=== PATIENT | male | born 1960 | race Caucasian/White ===

== ENCOUNTER 2018-05-28 10:22 | Outpatient (CLI) | payer MEDICARE ==
[~2018-05-28] VITALS: Ht 180.3 cm; Wt 122.7 kg
--- NOTE | ~2018-05-28 | HP ---
PATIENT: BRIANNA BOWLING MEDICAL RECORD: [id number] ACCOUNT: [id number] LOCATION:ERIN : 62 ADMISSION DATE: 05/28/18 HISTORY AND PHYSICAL EXAMINATION DIAGNOSES: 1. Angina. 2. Coronary artery disease. 3. Previous percutaneous transluminal coronary angioplasty stent. 4. Hypertension. 5. Hyperlipidemia. 6. Diabetes. HISTORY OF PRESENT ILLNESS: Mr. Bowling is visiting from [place]. He does have a past history of coronary artery disease. Last PTCA stent was a few years ago. For 2 days, he has been having a severe chest pain, chest pressure with radiation to his both arms and to his jaw, just like that of his previous angina but to a worse degree. His EKG is with nonspecific ST-T abnormalities and a previous inferior myocardial infarction. PHYSICAL EXAMINATION: GENERAL APPEARANCE: Well-nourished, well-developed, appears stated age. Level of distress, comfortable. PSYCHIATRIC: Mental status, alert, normal affect. Orientation, oriented to time, place and person. EYES: Lids and conjunctiva, noninjected. No discharge, no pallor. ENT: Lips, teeth, gums, normal dentition. Oropharynx, no cyanosis, no pallor. NECK: Carotid arteries, bilateral normal upstroke, no bruits, no thrills. JUGULAR VEINS: No jugular venous pressure or distention. CERVICAL LYMPH NODES: Nontender, nonenlarged. THYROID: Not enlarged. Nontender. No nodules. LUNGS: Respiratory effort, unlabored. CHEST: Normal curvature. No thoracic deformity. No chest wall tenderness. Percussion, resonant. Auscultation, clear. No wheezes, no rales, no rhonchi. CARDIOVASCULAR: Precordial exam, nondisplaced. No heaves or pericardial thrills. Rate and rhythm, regular. Heart sounds, normal S1, normal S2. No S3, no gallop, no rub. Systolic murmur, not heard. Diastolic murmur, not heard. EXTREMITIES: No cyanosis, no edema. Peripheral pulses, full and equal in all extremities, except as noted. No bruits appreciated. ABDOMEN: Soft, nondistended. Normal aorta. No bruit. Nontender. No masses. Liver, nontender, no hepatomegaly. Spleen, nontender, no splenomegaly. MUSCULOSKELETAL: No joint tenderness. No joint swelling. No erythema. NEUROLOGICAL: Normal gait, normal strength, normal tone. SKIN: Warm and dry. REVIEW OF SYSTEMS: The patient reports easy bruising but reports no swollen glands. The patient reports no fever, no night sweats, no significant weight gain, no significant weight loss. No significant exercise tolerance. The patient reports no dry eyes, no irritation, no vision change. Patient reports no difficulty hearing and no ear pain. Patient reports no frequent nose bleeds or nose and sinus problems. Patient reports on arm pain on exertion. No shortness of breath while lying down. No history of heart murmur. Patient reports no cough, no wheezing or coughing up blood. Patient reports no abdominal pain, no vomiting. Normal appetite. No diarrhea and not vomiting blood. No nausea and no constipation. Patient reports no incontinence. No HISTORY AND PHYSICAL [id number] BRIANNA BOWLING difficulty urinating. No hematuria. No increased frequency. Patient reports no muscle aches. No weakness, no arthralgias, no back pain. No swelling of the extremities. Patient reports no abnormal mole, no jaundice, no rashes. Reports no loss of consciousness. No weakness and no numbness. No seizures, dizziness, or headaches. The patient reports no depression, no sleep disturbance, feeling safe in a relationship and no alcohol abuse. Patient reports on fatigue. Reports no runny nose or sinus pressure. No itching, no hives, and no frequent sneezing. OVERALL IMPRESSION: Angina, unstable escalating fashion. We will proceed with coronary angiography. Further care depends upon the findings of the angiography. TRANSINT:[id number] Voice Confirmation ID: [id number] DOCUMENT ID: [id number] SOLA WHITE MD at 1806 CC: [id number] DICTATION DATE: 05/28/18 1213 BI TESTER: 05/28/18 1248 DEP CLI 05/28/18 [facility] [address] [id number]
--- NOTE | ~2018-05-28 | OP ---
PATIENT NAME: BRIANNA BOWLING MEDICAL RECORD: [id number] :62 LOCATION:D.CAT ADMISSION DATE: SURGEON: SOLA WHITE MD DATE OF OPERATION: 05/28/2018 PROCEDURES: 1. PTCA stent left circumflex. 2. Left heart catheterization. 3. Selective coronary angiography. 4. Left ventriculogram. INDICATION: Angina and coronary artery disease. PROCEDURE IN DETAIL: After informed consent was obtained and after a detailed description of the risks, benefits as well as alternative therapies, the patient elected to proceed with angiogram and angioplasty. The right radial area was prepped and draped in normal sterile fashion. Right radial artery was cannulated via modified Seldinger technique with placement of 6-Spanish sheath. All catheters exchanged through this sheath. FINDINGS: The left ventriculogram was performed in standard 30-degree HUFF view, reveals good cardiac wall motion throughout all segments. Overall ejection fraction estimated 60%. SELECTIVE CORONARY ANGIOGRAPHY: 1. Left main is with no significant angiographic disease. 2. Left anterior descending has moderate irregularities, but no flow-limiting stenosis. 3. The left circumflex has 90+ percent stenosis in the mid vessel. 4. The right coronary has mild irregularities, but no flow-limiting stenosis. PTCA STENT OF THE LEFT CIRCUMFLEX: The stent used 2.5 x 22 mm [place]. Result was 0% residual stenosis. OVERALL IMPRESSION: Successful percutaneous transluminal coronary angioplasty stent of the left circumflex going from 90+ percent initial stenosis to 0% residual. TRANSINT:[id number] Voice Confirmation ID: [id number] DOCUMENT ID: [id number] SOLA WHITE MD at 1806 CC: [id number] DICTATION DATE: 05/28/18 1648 CENTRIFUGE SEPARATOR TENDER: 05/28/18 1748 DEP CLI 05/28/18 [place] [address]
--- NOTE | ~2018-05-28 | HEMODYNAMI ---
PATIENT:BRIANNA BOWLING MEDICAL RECORD: [id number] : 62 LOCATION:[address] ADMISSION DATE: 05/28/18 Generatedon:05/28/201816:48 Patient name: BRIANNA BOWLING Patient #: [id number] SSN: : 1960 Date of study: 05/28/2018 Page: Of Hemodynamic Procedure Report Patient Data Patient Demographics Procedure consent was obtained First Name: BRIANNA Gender: Male Last Name: TAWNYA : 1960 Patient #: [id number] Age: 57 year(s) Race: Unknown Additional ID: [id number] Contact details [address]: [address] [place] [address] State: [place] City: [place] Zip code: [address] Past Medical History Allergies Allergen Reaction Date Comments Reported Other allergy 05/28/2018 PCN, MORPHINE Admission Admission Data Admission Date: 05/28/2018 Admission Time: 10:22 Room #: D.2117 Lab Results Lab Result Date: 05/28/2018 Lab Result Time: 0:00 Biochemistry Name Units Result Min Max BUN mg/dl 11 --(-*--)-- 7 18 Creatinine mg/dl 0.8 --(-*--)-- 0.6 1.3 CBC Name Units Result Min Max Hemoglobin g/dl 14.9 --(-*--)-- 13.5 17.5 Procedure Procedure Types Cath Procedure Diagnostic Procedure [facility] w/Coronaries Sedation Charges Moderate Sedation up to 15 minutes PCI Procedure Coronary Stent Coronary Stent Initial Procedure Description Procedure Date Procedure Date: 05/28/2018 Procedure Start Time: 16:32 Procedure End Time: 16:47 Procedure Staff Name Function Alberto Ling MD Performing Physician Pallavi Bright RT Monitor Kimberly Olivares RT Scrub Tanner Moore RN Nurse Robin Wynn RT Topographical Drafter Procedure Data Cath Procedure Fluoroscopy Diagnostic fluoroscopy Total fluoroscopy Time: 3.3 time: 3.3 min min Diagnostic fluoroscopy Total fluoroscopy dose: dose: 1258.92 mGy 1258.92 mGy Contrast Material Contrast Material Type Amount (ml) Isovue 300 101 Entry Location Entry Primary Successful Side Size Upsize Upsize Entry Closure Mir ccessful Closure Location (Fr) 1 (Fr) 2 (Fr) Remarks Device Remarks Radial Right 6 Fr Mechanical artery Short Compression Estimated blood loss: 10 ml Diagnostic catheters Device Type Used For End Catheter Placement DIAGNOSTIC Oneill 110cm 5 Procedure Fr catheter ([id number]) Procedure Complications No complications Procedure Medications Medication Administration Route Dosage 0.9% NaCl I.V. 100 ml/hr Oxygen etCO2 Nasal cannula 2 l/min Heparin Flush Bag added to field 2 bags (1000units/500ml NS) Lidocaine 2% added to field 20 Radial Cocktail added to field 1 syringe (Verapomil 2mg/Nitro 400mcg/Heparin 1500units) Benadryl I.V. 50 mg Versed I.V. 2 mg Fentanyl I.V. 100 mcg Radial Cocktail I.A. 1 syringe (Verapomil 2mg/Nitro 400mcg/Heparin 1500units) Heparin Bolus I.V. 4000 units Hemodynamics Rest HGB: 14.9 (g/dl) Heart Rate: 66 (bpm) Snapshots Pre Cath Intra NCS Post Cath Vital Signs Time Heart Resp SPO2 etCO2 NIBP (mmHg) Rhythm Pain Sedation Rate (ipm) (%) (mmHg) Status Level (bpm) 16:28:52 67 18 98 25.4 119/86(108) NSR 0 (11) 10(A) , No pain 16:33:39 71 16 93 29.2 135/87(123) NSR 0 (11) 10(A) , No pain 16:38:28 78 14 93 8.2 138/87(111) NSR 0 (11) 9(A) , No pain 16:43:59 75 15 94 29.2 135/80(101) NSR 0 (11) 9(A) , No pain Medications Time Medication Route Dose Verified Delivered Reason Not es Effectiveness by by 16:26:00 0.9% NaCl I.V. 100 Tanner Tanner Per physician ml/hr Oscar Moore RN RN 16:26:10 Oxygen etCO2 2 l/min Tanner Tanner Per physician Nasal Oscar Moore cannula RN RN 16:26:21 Heparin Flush added 2 bags Tanner Tanner used for Bag to Oscar Moore procedure (1000units/500ml field RN RN NS) 16:26:31 Lidocaine 2% added 20ml Tanner Tanner for local to vial Lorrebecca Moore anesthetic RN RN 16:26:44 Radial Cocktail added 1 Tanner Tanner used for (Verapomil to syringe Lorigan Lorrebecca procedure 2mg/Nitro field RN RN 400mcg/Heparin 1500units) 16:26:54 Benadryl I.V. 50 mg Tanner Tanner Per physician Oscar Moore RN RN 16:28:21 Versed I.V. 2 mg Tanner Tanner for sedation Oscar Moore RN RN 16:28:31 Fentanyl I.V. 100 mcg Tanner Tanner for sedation Oscar Moore RN RN 16:33:24 Radial Cocktail I.A. 1 Tanner Alberto for (Verapomil syringe Lorigan Sushil MD vasodilation 2mg/Nitro RN 400mcg/Heparin 1500units) 16:39:52 Heparin Bolus I.V. 4000 Tanner Tanner for units Oscar Moore anticoagulation RN mohs surgeon Log Time Note 15:48:19 Signed procedure consent form obtained from patient. 15:48:20 Time tracking: Regular hours (M-F 7:00 - 5:00) 15:48:27 Plan of Care:Hemodynamics will remain stable., Cardiac rhythm will remain stable., Comfort level will be maintained., Respiratory function will remain adequate., Patient/ family verbilizes understanding of procedure., Procedure tolerated without complication., Recovers from procedure without complications.. 15:49:52 Lab Result : BUN 11 mg/dl 15:49:53 Lab Result : Creatinine 0.8 mg/dl 15:49:53 Lab Result : Hemoglobin 14.9 g/dl 15:50:35 Patient allergic to Other allergyPCN, MORPHINE 16:04:43 Tanner Moore RN sent for patient. Start room use. 16:12:44 Patient received from PCU to CCL 1 Alert and oriented. Tansferred to table in Supine position. 16:12:46 Warm blankets applied, and anival hugger turned on for patient comfort. 16:12:46 Correct patient and procedure confirmed by team. 16:12:47 ECG and BP/O2 sat monitors applied to patient. 16:12:48 Full Disclosure recording started 16:21:16 Vital chart was started 16:26:00 0.9% NaCl 100 ml/hr I.V. was administered by Tanner Moore RN; Per physician; 16:26:10 Oxygen 2 l/min etCO2 Nasal cannula was administered by Tanner Moore RN; Per physician; 16:26:16 Baseline sample Acquired. 16:26:19 Rhythm: sinus rhythm 16:26:21 Heparin Flush Bag (1000units/500ml NS) 2 bags added to field was administered by Tanner Moore RN; used for procedure; 16:26:31 Lidocaine 2% 20ml vial added to field was administered by Tanner Moore RN; for local anesthetic; 16:26:44 Radial Cocktail (Verapomil 2mg/Nitro 400mcg/Heparin 1500units) 1 syringe added to field was administered by Tanner Moore RN; used for procedure; 16:26:54 Benadryl 50 mg I.V. was administered by Tanner Moore RN; Per physician; 16:27:02 H&P Date Dictated: 05/28/2018 ER History on chart.. 16:27:03 Pre-procedure instructions explained to patient. 16:27:03 Pre-op teaching completed and patient verbalized understanding. 16:27:05 Family in patients room. 16:27:07 Patient NPO since Midnight. 16:27:10 Is the patient allergic to Iodine/contrast media? No. 16:27:11 Is patient on blood thinner?Yes 16:27:13 ACC The patient was administered the following blood thiners within the last 24 hours: ACCPlavix 16:27:14 Patient diabetic? No. 16:27:16 Previous problem with sedation/anesthesia? No ? 16:27:17 Snore? Yes 16:27:18 Sleep apnea? Yes 16:27:19 Deviated septum? No 16:27:20 Opens mouth fully? Yes 16:27:21 Sticks out tongue? Yes 16:27:23 Airway obstruction? No ? 16:27:25 Dentures? No ? 16:27:27 Modified Ryan's test Ulnar < 7 seconds 16:27:29 Patient pain scale 0/10 ?. 16:27:35 IV patent on arrival in left forearm with 0.9% NaCl at [facility]. 16:27:37 Lab results completed and on chart. 16:27:43 Right Radial & Right Groin area was prepped with chlora-prep and draped in sterile fashion 16::44 Alarms reviewed by R. N. 16::44 Sharps counted by scrub and verified by R.N. 16:27:46 --------ALL STOP TIME OUT------ 16:27:47 Final Timeout: patient, procedure, and site verified with staff and physician. All members of the team are in agreement. 16:27:48 Right Radial & Right Groin site verified by team. 16:27:51 Physical assessment completed. ASA score P 2 - A patient with mild systemic disease as per Alberto Lnig MD. 16:27:53 Sedation plan: IV Moderate Sedation Medication:Versed, Fentanyl 16:28:21 Versed 2 mg I.V. was administered by Tanner Moore RN; for sedation; 16:28:31 Fentanyl 100 mcg I.V. was administered by Tanner Moore RN; for sedation; 16:29:04 Use device set Radial Dx or PCI 16:29:05 ACIST Syringe (00961) opened to sterile field. 16:29:06 Bag Decanter (2002S) opened to sterile field. 16:29:07 ACIST Hand Control (42381) opened to sterile field. 16:29:07 ACIST Manifold (00931) opened to sterile field. 16:29:08 Tegaderm 4 x 4 (1626W) opened to sterile field. 16:29:10 Medline Cath Pack ([id number]) opened to sterile field. 16:29:11 DIAGNOSTIC WIRE .035 260cm J wire (257047) opened to sterile field. 16:29:12 SHEATH 6Fr Prelude Radial ([id number]) opened to sterile field. 16:32:19 Zero performed for pressure channel P1 16:32:25 Procedure started. 16:32:32 Zero performed for pressure channel P1 16:32:49 Local anesthetic to right radial artery with Lidocaine 2% by Alberto Ling MD.INITIAL ACCESS ONLY 16:33:24 Radial Cocktail (Verapomil 2mg/Nitro 400mcg/Heparin 1500units) 1 syringe I.A. was administered by Alberto Ling MD; for vasodilation; 16:34:03 A 6 Fr Short sheath was inserted into the Right Radial artery 16:34:23 A DIAGNOSTIC Oneill 110cm 5 Fr catheter ([id number]) was advanced over the wire and used for Procedure. 16:34:55 LV gram done using HUFF 16:34:57 Injector settings: Ml/sec: 7, Volume: 15, 16:35:23 EF : 60 % 16:36:24 LCA angiography performed. 16:37:13 RCA angiography performed. 16:37:19 Catheter exchanged over wire. 16:37:35 INFLATOR Merit BasixCompak (SQ1322) opened to sterile field. 16:37:36 CHOICE PT Extra Support 182cm wire ([id number]) opened to sterile field. 16:38:11 GUIDE 6FR XBLAD 3.5 catheter ([id number]) opened to sterile field. 16:38:36 6 Fr XBLAD 3.5 guide catheter was inserted over the wire 16:39:33 CHOICE ES 182 wire advanced. 16:39:52 Heparin Bolus 4000 units I.V. was administered by Tanner Moore RN; for anticoagulation; 16:40:24 Wire advanced across lesion. 16:42:17 Place stent Inflation Number: 1 A GABINO RX 2.5 x 22 stent ([id number]) was prepped and advanced across the Mid CX. The stent was deployed at 13 FLASH for 0:10 (min:sec). 16:42:53 Stent catheter was removed intact over wire. 16:42:54 Wire removed. 16:42:54 Guide catheter removed. 16:43:01 Procedure ended.(Physican Out) 16:43:31 Sheath removed intact; hemostasis achieved with Mechanical Compression to the Right Radial artery. 16:45:52 Fluoroscopy time 03.30 minutes. 16:46:05 Fluoroscopy dose: 1258.92 mGy 16:46:05 Flurop Dose total: 1258.92 16:46:08 Contrast amount:Isovue 300 101ml. 16:46:10 Sharps counted by scrub and verified by R.N. 16:46:32 TR band inflated with 10cc of air. 16:46:35 Post-procedure physical assessment completed. ASA score P 2 - A patient with mild systemic disease as per Alberto Ling MD. 16:46:38 Post procedure rhythm: sinus rhythm 16:46:40 Estimated blood loss: 10 ml 16:46:41 Post procedure instruction explained to patient.Patient verbalizes understanding. 16:46:42 Patient needs reinforcement of post procedure teaching. 16:47:00 Procedure type changed to Cath procedure, Diagnostic procedure, LHC, LHC w/Coronaries, Sedation Charges, Moderate Sedation up to 15 minutes, PCI procedure, Coronary Stent, Coronary Stent Initial 16:47:37 Procedure and supply charges have been captured, reviewed, submitted and are correct. 16:47:40 Procedure Complication : No complications 16:47:42 See physician's report for complete and final results. 16:47:45 Vital chart was stopped 16:47:48 Report given to PCU. 16:47:50 Patient transfered to PCU with Bed. 16:47:56 Procedure ended. 16:47:56 Full Disclosure recording stopped 16:47:58 End room use (Document Last) Intervention Summary Intervention Notes Time ActionType Lesion and Equipment Used Action# Pressure Duration Attributes 16:42:17 Place stent Mid CX GABINO RX 2.5 x 1 13 00:10 22 stent ([id number]) Device Usage Item Name Manufacture Quantity Catalog Number Hospital Part Current Minimal Lot# / Charge Number Stock Stock Serial# Code ACIST Syringe Acist 1 05387 308771 437800 625127 20 (63125) [employer] Bag Decanter Microtek 1 2001S [id number] 82426 015217 5 (2001S) Medical Inc. ACIST Hand Acist 1 92696 979908 210946 943353 5 Control (19272) [employer] ACIST Manifold Acist 1 48423 058642 124397 193968 5 (13215) [employer] Tegaderm 4 x 4 3M 1 1626W 775962 079752 825499 5 (1626W) Medline Cath Cardinal 1 [id number] 234499 59707 563142 5 [facility] ([id number]) DIAGNOSTIC WIRE St Evan 1 809235 986641 760934 158395 30 .035 260cm J wire (320229) SHEATH 6Fr Merit 1 [id number] 894616 414134 154648 5 Prelude Radial Medical ([id number]) DIAGNOSTIC Terumo 1 40-1275 780022 436131 222611 5 Oneill 110cm 5 Fr catheter (472604) INFLATOR Merit Merit 1 [id number] 773603 638952 293223 15 [employer] [facility] ([id number]) CHOICE PT Extra [place] 1 [id number] 000992 546869 491173 5 Support 182cm Scientific wire ([id number]) GUIDE 6FR XBLAD Cardinal 1 [id number] 478372 451179 869727 10 3.5 catheter Health ([id number]) GABINO RX 2.5 x Medtronic 1 [id number] 857442 6762092 340839 5 [id number] 22 stent ([id number]) Signature Audit Clive Stage Time Signature Unsigned Intra-Procedure 05/28/2018 Pallavi Bright 4:48:25 PM RT(R) Signatures Monitor : Pallavi Bright Signature : RT Date : Time : [address] [address]
[2018-05-28 11:07] LABS: BASOPHILS 0.5 % (0-2); EOSINOPHILS 1.7 % (0-7); HEMATOCRIT 42.4 % (42.0-54.0); HEMOGLOBIN 14.9 g/dL (13.5-17.5); IMMATURE GRANULOCYTES 0.5 % (0-5); LYMPHOCYTES 29.4 % (15-50); MCH 30.8 pg (26.0-34.0); MCHC 35.1 g/dL (31.0-37.0); MCV 87.8 fL (80.0-100.0); MEAN PLATELET VOLUME 9.2 fL (7.4-10.4); MONOCYTES 6.2 % (2-11); NEUTROPHILS 61.7 % (40-80); PLATELET COUNT 236 10x3/uL (130-400); RBC 4.83 10x6/uL (4.20-6.10); RDW 12.3 % (11.5-14.5); WBC 6.5 10x3/uL (4.8-10.8)
[2018-05-28 11:11] LABS: ALBUMIN 3.6 g/dL (3.4-5.0); ALKALINE PHOSPHATASE 63 U/L (46-116); ALT (SGPT) 39 U/L (10-68); CALC OSMOLALITY 274 mosm/kg (275-300); CALCIUM 8.5 mg/dL (8.5-10.1); CARBON DIOXIDE 25.3 mmol/L (21.0-32.0); CHLORIDE - SERUM 98 mmol/L (98-107); CREATININE - SERUM 0.8 mg/dL (0.6-1.3); GLUCOSE 289 mg/dL (74-106); SODIUM 132 mmol/L (136-145); UREA NITROGEN 11 mg/dL (7-18); eGFR NON AFRICAN AMERICAN > 90 mL/min (90-120)
[2018-05-28 11:16] LABS: APTT 26.1 SECONDS (22.8-39.4); INR 0.97 (0.85-1.17); PROTIME 12.5 SECONDS (11.6-15.0)
[2018-05-28 11:22] LABS: CKMB 2.8 U/L (0.0-3.6); CREATINE KINASE 210 UL (21-232)
[2018-05-28 11:23] LABS: TROPONIN-I < 0.017 ng/mL (0.000-0.060)
[2018-05-28 15:33] VITALS: BP 171/93; Ht 180.3 cm; Wt 122.7 kg
[2018-05-28 21:28] VITALS: BP 145/82
== END 2018-05-28 21:36 | disposition home or self-care (01) ==
LOC: D.CATH 10:22 → D.ER 10:22 → EDSTATUS 12:42 → D.M2 14:37 → D.CATH 21:36
PROVIDERS: Emergency Medicine
DX: I25.110 Atherosclerotic heart disease of native coronary artery with unstable angina pectoris (principal); Z95.5 Presence of coronary angioplasty implant and graft; I10 Essential (primary) hypertension; E78.5 Hyperlipidemia, unspecified; E11.9 Type 2 diabetes mellitus without complications; Z01.812 Encounter for preprocedural laboratory examination

== ENCOUNTER 2018-06-07 14:35 | Outpatient (CLI) | payer MEDICARE ==
[~2018-06-07] VITALS: Ht 180.3 cm; Wt 117.4 kg
[2018-06-07] VITALS (7 sets, daily range): BP systolic 162–198; BP diastolic 93–117
--- NOTE | ~2018-06-07 | HEMODYNAMI ---
PATIENT:BRIANNA BOWLING MEDICAL RECORD: [id number] : 62 LOCATION:[place] [address] ADMISSION DATE: 06/07/18 Generatedon:06/08/20189:00 Patient name: BRIANNA BOWLING Patient #: [id number] SSN: : 1960 Date of study: 06/08/2018 Page: Of Hemodynamic Procedure Report Patient Data Patient Demographics Procedure consent was obtained First Name: BRIANNA Gender: Male Last Name: TAWNYA : 1960 Patient #: [id number] Age: 57 year(s) Race: Unknown Additional ID: [id number] Contact details [address]: [address] [place] [address] State: [place] City: [place] Zip code: [address] Past Medical History Allergies Allergen Reaction Date Comments Reported Other allergy 05/28/2018 PCN, MORPHINE Other allergy 06/08/2018 Morphine, PCN Admission Admission Data Admission Date: 06/07/2018 Admission Time: 17:10 Room #: 2117 Weight (lbs.): 270.55 Weight (kg.): 122.72 Procedure Procedure Types Cath Procedure Diagnostic Procedure [facility] w/Coronaries Sedation Charges Moderate Sedation up to 15 minutes PCI Procedure Coronary Stent Coronary Stent Initial Procedure Description Procedure Date Procedure Date: 06/08/2018 Procedure Start Time: 8:39 Procedure End Time: 8:59 Procedure Staff Name Function Alberto Ling MD Performing Physician Elie Beckham RT Monitor Tanner Moore RN Nurse Rafael Guillermo RT Scrub Robin Wynn RT Plant Operator Helper Procedure Data Cath Procedure Fluoroscopy Diagnostic fluoroscopy Total fluoroscopy Time: 6.5 time: 6.5 min min Diagnostic fluoroscopy Total fluoroscopy dose: dose: 760.98 mGy 760.98 mGy Contrast Material Contrast Material Type Amount (ml) Isovue 300 137 Entry Location Entry Primary Successful Side Size Upsize Upsize Entry Closure Mir ccessful Closure Location (Fr) 1 (Fr) 2 (Fr) Remarks Device Remarks Radial Right 6 Fr Mechanical artery Short Compression Estimated blood loss: 10 ml Diagnostic catheters Device Type Used For End Catheter Placement DIAGNOSTIC [place] 110cm 5 Procedure Fr catheter ([id number]) Procedure Complications No complications Procedure Medications Medication Administration Route Dosage 0.9% NaCl I.V. 100 ml/hr Oxygen etCO2 Nasal cannula 2 l/min Heparin Flush Bag added to field 2 bags (1000units/500ml NS) Lidocaine 2% added to field 20 Radial Cocktail added to field 1 syringe (Verapomil 2mg/Nitro 400mcg/Heparin 1500units) Versed I.V. 1 mg Fentanyl I.V. 50 mcg Radial Cocktail I.A. 1 syringe (Verapomil 2mg/Nitro 400mcg/Heparin 1500units) Heparin Bolus I.V. 4000 units Versed I.V. 1 mg Fentanyl I.V. 50 mcg Effient P.O. 10 mg Hemodynamics Rest Heart Rate: 82 (bpm) Snapshots Pre Cath Intra NCS Post Cath Vital Signs Time Heart Resp SPO2 etCO2 NIBP (mmHg) Rhythm Pain Sedation Rate (ipm) (%) (mmHg) Status Level (bpm) 8:33:31 82 11 93 36.7 119/67(105) NSR 0 (11) 10(A) , No pain 8:37:55 75 12 95 85/68(74) NSR 0 (11) 10(A) , No pain 8:42:07 84 13 93 95/57(66) NSR 0 (11) 9(A) , No pain 8:46:15 83 16 95 112/78(100) NSR 0 (11) 9(A) , No pain 8:50:31 80 13 93 24.7 120/78(93) NSR 0 (11) 10(A) , No pain 8:54:51 76 14 92 18 119/75(98) NSR 0 (11) 10(A) , No pain 8:59:13 78 8 93 27.7 124/70(97) NSR 0 (11) 10(A) , No pain Medications Time Medication Route Dose Verified Delivered Reason Note s Effectiveness by by 8:35:12 0.9% NaCl I.V. 100 Tanner Tanner Per physician ml/hr Oscar Moore RN RN 8:35:21 Oxygen etCO2 2 l/min Tanner Tanner Per physician Nasal Oscar Moore cannula RN RN 8:35:33 Heparin Flush added 2 bags Tanner Tanner used for Bag to Oscar Moore procedure (1000units/500ml field RN RN NS) 8:35:44 Lidocaine 2% added 20ml Tanner Tanner for local to vial Lorigan Oscar anesthetic field RN RN 8:35:55 Radial Cocktail added 1 Tanner Tanner used for (Verapomil to syringe Lorigan Oscar procedure 2mg/Nitro field RN RN 400mcg/Heparin 1500units) 8:39:54 Versed I.V. 1 mg Tanner Tanner for sedation Oscar Moore RN RN 8:40:02 Fentanyl I.V. 50 mcg Tanner Tanner for sedation Oscar Moore RN RN 8:40:56 Radial Cocktail I.A. 1 Tanner Alberto for (Verapomil syringe Oscar Taustoney MD vasodilation 2mg/Nitro RN 400mcg/Heparin 1500units) 8:44:57 Heparin Bolus I.V. 4000 Tanner Tanner for units Oscar Moore anticoagulation RN RN 8:54:08 Versed I.V. 1 mg Tanner Tanner for sedation Oscar Moore RN RN 8:54:15 Fentanyl I.V. 50 mcg Tanner Tanner for sedation Oscar Moore RN RN 8:56:32 Effient P.O. 10 mg Tanner Tanner for Lorigan Oscar antiplatelet RN RN therapy Procedure Log Time Note 8:04:02 Robin PEDERSON(R) sent for patient. Start room use. 8:04:05 Time tracking: Regular hours (M-F 7:00 - 5:00) 8:04:11 Plan of Care:Hemodynamics will remain stable., Cardiac rhythm will remain stable., Comfort level will be maintained., Respiratory function will remain adequate., Patient/ family verbilizes understanding of procedure., Procedure tolerated without complication., Recovers from procedure without complications.. 8:12:47 Patient received from PCU to CCL 3 Alert and oriented. Tansferred to table in Supine position. 8:12:48 Warm blankets applied, and anival hugger turned on for patient comfort. 8:12:48 Correct patient and procedure confirmed by team. 8:12:49 Signed procedure consent form obtained from patient. 8:12:50 ECG and BP/O2 sat monitors applied to patient. 8:32:14 Vital chart was started 8:32:16 Baseline sample Acquired. 8:32:26 Rhythm: sinus rhythm 8:32:28 Full Disclosure recording started 8:32:41 H&P Date Dictated: 06/07/2018 Within 30 days and on chart.. 8:32:43 Pre-procedure instructions explained to patient. 8:32:44 Pre-op teaching completed and patient verbalized understanding. 8:33:01 Family unavailable. 8:33:02 Patient NPO since Midnight. 8:33:16 Patient allergic to Other allergyMorphine, PCN 8:33:17 Is the patient allergic to Iodine/contrast media? No. 8:35:12 0.9% NaCl 100 ml/hr I.V. was administered by Tanner Moore RN; Per physician; 8:35:16 Is patient on blood thinner?Yes 8:35:19 ACC The patient was administered the following blood thiners within the last 24 hours: ACCEffient 8:35:21 Oxygen 2 l/min etCO2 Nasal cannula was administered by Tanner Moore RN; Per physician; 8:35:21 Patient diabetic? No. 8:35:24 Snore? Yes 8:35:26 Previous problem with sedation/anesthesia? No ? 8:35:27 Sleep apnea? Yes 8:35:29 Deviated septum? No 8:35:29 Opens mouth fully? Yes 8:35:30 Sticks out tongue? Yes 8:35:32 Airway obstruction? No ? 8:35:33 Heparin Flush Bag (1000units/500ml NS) 2 bags added to field was administered by Tanner Moore RN; used for procedure; 8:35:34 Dentures? No ? 8:35:37 Modified Ryan's test Ulnar < 7 seconds 8:35:40 Patient pain scale 0/10 ?. 8:35:43 IV patent on arrival in right hand with 0.9% NaCl at [facility]. 8:35:44 Lidocaine 2% 20ml vial added to field was administered by Tanner Moore RN; for local anesthetic; 8:35:55 Radial Cocktail (Verapomil 2mg/Nitro 400mcg/Heparin 1500units) 1 syringe added to field was administered by Tanner Moore RN; used for procedure; 8:37:06 Lab Result : BUN 12 mg/dl 8:37:06 Lab Result : Creatinine 0.8 mg/dl 8:37:06 Lab Result : Hemoglobin 16 g/dl 8:37:06 Lab Result : Hematocrit 44.5 % 8:37:11 Lab results completed and on chart. 8:37:14 Right Radial & Right Groin area was prepped with chlora-prep and draped in sterile fashion 8:37:14 Alarms reviewed by R. N. 8:37:15 Sharps counted by scrub and verified by R.N. 8:37:17 Use device set Radial Dx or PCI 8:37:18 ACIST Syringe (06115) opened to sterile field. 8:37:18 Medline Cath Pack ([id number]) opened to sterile field. 8:37:19 Bag Decanter (2002S) opened to sterile field. 8:37:19 ACIST Hand Control (91994) opened to sterile field. 8:37:20 ACIST Manifold (08956) opened to sterile field. 8:37:20 Tegaderm 4 x 4 (1626W) opened to sterile field. 8:37:21 MBrace Wrist Support ([id number]) opened to sterile field. 8:37:22 SHEATH 6Fr Prelude Radial ([id number]) opened to sterile field. 8:37:22 DIAGNOSTIC WIRE .035 260cm J wire (720434) opened to sterile field. 8:39:31 Physician arrived 8:39:32 --------ALL STOP TIME OUT------ 8:39:32 Final Timeout: patient, procedure, and site verified with staff and physician. All members of the team are in agreement. 8:39:34 Right Radial & Right Groin site verified by team. 8:39:36 Physical assessment completed. ASA score P 2 - A patient with mild systemic disease as per Alberto Ling MD. 8:39:38 Sedation plan: IV Moderate Sedation Medication:Versed, Fentanyl 8:39:49 Procedure started. 8:39:54 Versed 1 mg I.V. was administered by Tanner Moore RN; for sedation; 8:39:54 Local anesthetic to right radial artery with Lidocaine 2% by Alberto Ling MD.INITIAL ACCESS ONLY 8:40:02 Fentanyl 50 mcg I.V. was administered by Tanner Moore RN; for sedation; 8:40:09 A 6 Fr Short sheath was inserted into the Right Radial artery 8:40:11 Zero performed for pressure channel P1 8:40:56 Radial Cocktail (Verapomil 2mg/Nitro 400mcg/Heparin 1500units) 1 syringe I.A. was administered by Alberto Ling MD; for vasodilation; 8:41:39 A DIAGNOSTIC [place] 110cm 5 Fr catheter (124124) was advanced over the wire and used for Procedure. 8:41:41 LV gram done using HUFF 8:41:44 Injector settings: Ml/sec: 5, Volume: 15, 8:41:44 LV hemodynamics recorded. 8:41:53 EF : 60 % 8:42:48 LCA angiography performed. 8:42:49 RCA angiography performed. 8:44:01 Catheter removed. 8:44:17 INFLATOR Merit BasixCompak (HW3370) opened to sterile field. 8:44:18 CHOICE PT Extra Support 182cm wire ([id number]) opened to sterile field. 8:44:18 GUIDE 6FR XBLAD 3.5 catheter ([id number]) opened to sterile field. 8:44:27 6 Fr xblad 3.5 guide catheter was inserted over the wire 8:44:31 choice pt es wire advanced. 8:44:57 Heparin Bolus 4000 units I.V. was administered by Tanner Moore RN; for anticoagulation; 8:45:53 Wire advanced across lesion. 8:47:28 Inflate balloon Inflation number: 1 A EUPHORA 2.5 x 20 Balloon ([id number]) was prepped and advanced across the Dist CX, then inflated to 7 FLASH for 0:10 (min:sec). 8:47:36 Inflation number: 2 The EUPHORA 2.5 x 20 Balloon ([id number]) was reinflated across the Dist CX, to 7 FLASH for 0:10 (min:sec). 8:48:01 Inflation number: 3 The EUPHORA 2.5 x 20 Balloon ([id number]) was reinflated across the Dist CX, to 11 FLASH for 0:10 (min:sec). 8:49:22 Balloon removed over the wire. 8:51:21 Place stent Inflation Number: 4 A INTEGRITY RX 2.25 x 26 stent ([id number]) was prepped and advanced across the Dist CX. The stent was deployed at 15 FLASH for 0:10 (min:sec). 8:53:20 Stent catheter was removed intact over wire. 8:53:55 Place stent Inflation Number: 5 A GABINO RX 2.0 x 15 stent ([id number]) was prepped and advanced across the Dist CX. The stent was deployed at 13 FLASH for 0:10 (min:sec). 8:54:08 Versed 1 mg I.V. was administered by Tanner Moore RN; for sedation; 8:54:15 Fentanyl 50 mcg I.V. was administered by Tanner Moore RN; for sedation; 8:54:22 Stent catheter was removed intact over wire. 8:54:22 Wire removed. 8:54:26 Guide catheter removed. 8:54:38 TR BAND Standard ([id number]) opened to sterile field. 8:56:32 Effient 10 mg P.O. was administered by Tanner Moore RN; for antiplatelet therapy; 8:57:13 Sheath removed intact; hemostasis achieved with Mechanical Compression to the Right Radial artery. 8:57:14 Procedure ended.(Physican Out) 8:57:54 Fluoroscopy time 06.50 minutes. 8:58:00 Fluoroscopy dose: 760.98 mGy 8:58:00 Flurop Dose total: 760.98 8:58:04 Contrast amount:Isovue 300 137ml. 8:58:05 Sharps counted by scrub and verified by R.N. 8:58:07 TR band inflated with 10cc of air. 8:58:08 Insertion/operative site no bleeding no hematoma. 8:58:09 Post Procedure Pulses reassessed and unchanged 8:58:13 Post-procedure physical assessment completed. ASA score P 2 - A patient with mild systemic disease as per Alberto Ling MD. 8:58:15 Post procedure rhythm: unchanged. 8:58:17 Estimated blood loss: 10 ml 8:58:19 Post procedure instruction explained to patient.Patient verbalizes understanding. 8:58:19 Patient needs reinforcement of post procedure teaching. 8:58:28 Procedure type changed to Cath procedure, Diagnostic procedure, LHC, LHC w/Coronaries, Sedation Charges, Moderate Sedation up to 15 minutes, PCI procedure, Coronary Stent, Coronary Stent Initial 8:59:22 Procedure and supply charges have been captured, reviewed, submitted and are correct. 8:59:24 Procedure Complication : No complications 8:59:27 Vital chart was stopped 8:59:27 See physician's report for complete and final results. 8:59:29 Report given to PCU. 8:59:31 Patient transfered to PCU with Stretcher. 8:59:34 Procedure ended. 8:59:34 Full Disclosure recording stopped 8:59:37 End room use (Document Last) 8:59:56 Patient Weight : 270.55 lbs Intervention Summary Intervention Notes Time ActionType Lesion and Equipment Used Action# Pressure Duration Attributes 8:47:28 Inflate Dist CX EUPHORA 2.5 x 1 7 00:10 balloon 20 Balloon ([id number]) 8:47:36 Reinflate Dist CX EUPHORA 2.5 x 2 7 00:10 balloon 20 Balloon ([id number]) 8:48:01 Reinflate Dist CX EUPHORA 2.5 x 3 11 00:10 balloon 20 Balloon ([id number]) 8:51:21 Place stent Dist CX INTEGRITY RX 4 15 00:10 2.25 x 26 stent ([id number]) 8:53:55 Place stent Dist CX GABINO RX 2.0 x 5 13 00:10 15 stent ([id number]) Device Usage Item Name Manufacture Quantity Catalog Number Hospital Part Current Minimal Lot# / Charge Number Stock Stock Serial# Code ACIST Syringe Acist 1 61041 557939 621663 196049 20 (75402) Medical Systems Inc Medline Cath Cardinal 1 [id number] 447355 64276 150786 5 Pack Health ([id number]) Bag Decanter Microtek 1 455369 74346 305498 5 (2001S) Medical Inc. ACIST Hand Acist 1 23649 667896 222376 130998 5 Control (92644) Medical Systems Inc ACIST Manifold Acist 1 26516 756359 914630 475288 5 (60013) Medical Systems Inc Tegaderm 4 x 4 3M 1 1626W 672638 302384 342603 5 (1626W) MBrace Wrist Advanced 1 140-0250-00 464245 97619 149373 5 Support Vascular ([id number]) Dynamics SHEATH 6Fr Merit 1 [id number] 345452 140103 247315 5 Prelude Radial Medical ([id number]) DIAGNOSTIC WIRE St Evan 1 558157 979340 953588 086956 30 .035 260cm J wire (980377) DIAGNOSTIC Terumo 1 40-6011 640489 795022 824913 5 [place] 110cm 5 Fr catheter (503673) INFLATOR Merit Merit 1 YY4907 068800 857020 961913 15 SensorCathMobile Active DefensedeFairlay Medical (CU3385) CHOICE PT Extra [place] 1 [id number] 832963 746974 278498 5 Support 182cm Scientific wire ([id number]) GUIDE 6FR XBLAD Cardinal 1 [id number] 106647 009179 164888 10 3.5 catheter Health (48565963) EUPHORA 2.5 x Medtronic 1 [id number] 734365 339591 325637 5 [id number] 20 Balloon ([id number]) INTEGRITY RX Medtronic 1 [id number] 222418 671381 492159 5 [id number] 2.25 x 26 stent ([id number]) GABINO RX 2.0 x Medtronic 1 [id number] 956925 0279456 192162 5 [id number] 15 stent ([id number]) TR BAND Terumo 1 [id number] 536668 649467 690265 40 Standard ([id number]) Signature Audit Smilax Stage Time Signature Unsigned Intra-Procedure 06/08/2018 Elie Beckham 9:00:15 AM RT(R) Signatures Monitor : Elie Beckham RT Signature : Date : Time : [facility] [address] [place], [place] [address]
--- NOTE | ~2018-06-07 | HP ---
PATIENT: BRIANNA BOWLING MEDICAL RECORD: [id number] ACCOUNT: [id number] [facility] AD[facility]ION DATE: 06/07/18 PCP: No PCP HISTORY AND PHYSICAL EXAMINATION DIAGNOSES: 1. Unstable angina. 2. Coronary artery disease. 3. Hypertension. 4. Hyperlipidemia. HISTORY: Mr. Bowling is status post recent PTCA and stent of the left circumflex approximately a week ago. He was doing well until last night. He had the onset of chest discomfort. It was off and on all night, continued today. His EKG is normal, but troponin is 4. He is taking his aspirin and Plavix. PHYSICAL EXAMINATION: GENERAL APPEARANCE: Well-nourished, well-developed, appears stated age. Level of distress, comfortable. PSYCHIATRIC: Mental status, alert, normal affect. Orientation, oriented to time, place and person. EYES: Lids and conjunctiva, noninjected. No discharge, no pallor. ENT: Lips, teeth, gums, normal dentition. Oropharynx, no cyanosis, no pallor. NECK: Carotid arteries, bilateral normal upstroke, no bruits, no thrills. JUGULAR VEINS: No jugular venous pressure or distention. CERVICAL LYMPH NODES: Nontender, nonenlarged. THYROID: Not enlarged. Nontender. No nodules. LUNGS: Respiratory effort, unlabored. CHEST: Normal curvature. No thoracic deformity. No chest wall tenderness. Percussion, resonant. Auscultation, clear. No wheezes, no rales, no rhonchi. CARDIOVASCULAR: Precordial exam, nondisplaced. No heaves or pericardial thrills. Rate and rhythm, regular. Heart sounds, normal S1, normal S2. No S3, no gallop, no rub. Systolic murmur, not heard. Diastolic murmur, not heard. EXTREMITIES: No cyanosis, no edema. Peripheral pulses, full and equal in all extremities, except as noted. No bruits appreciated. ABDOMEN: Soft, nondistended. Normal aorta. No bruit. Nontender. No masses. Liver, nontender, no hepatomegaly. Spleen, nontender, no splenomegaly. MUSCULOSKELETAL: No joint tenderness. No joint swelling. No erythema. NEUROLOGICAL: Normal gait, normal strength, normal tone. SKIN: Warm and dry. OVERALL IMPRESSION: Unstable angina with abnormal troponin. We will proceed with repeat coronary angiography. Further care depends upon findings of the angiography. We will give one dose of Lovenox. Continue aspirin and Plavix. TRANSINT:[id number] Voice Confirmation ID: [id number] DOCUMENT ID: [id number] HISTORY AND PHYSICAL [id number] BRIANNA BOWLING JEFFREY MD at 1949 CC: [id number] DICTATION DATE: 06/07/18 175 PRECISION AGRONOMIST: 06/07/18 1801 DIS IN 06/08/18 [place] [address] [place] [address]
--- NOTE | ~2018-06-07 | DS ---
PATIENT:BRIANNA BOWLING :62 MEDICAL RECORD: [id number] DISCHARGE SUMMARY ADMISSION DATE: 06/07/18 DISCHARGE DATE: 06/08/18 DATE OF DISCHARGE: 06/08/2018 DIAGNOSES: 1. Non-Q-wave myocardial infarction. 2. Coronary artery disease. 3. PTCA and stent of left circumflex this admission. HOSPITAL COURSE: Mr. Bowling presents with acute closure of a previously placed stent from last week, most likely a Plavix nonresponder. He underwent successful PTCA and stent of the circumflex, reopening of this and was switched to Effient 10 mg every day. Will follow up with [facility] in 1 month. TRANSINT:[id number] Voice Confirmation ID: [id number] DOCUMENT ID: [id number] SOLA WHITE MD at 1949 CC: [id number] DICTATION DATE: 06/08/18 0859 PROCUREMENT FORESTER: 06/08/18 0945 DIS IN 06/08/18 [place] [address] [place] [address]
--- NOTE | ~2018-06-07 | OP ---
PATIENT NAME: BRIANNA BOWLING MEDICAL RECORD: [id number] :62 [facility] ADMISSION DATE:06/07/18 SURGEON: SOLA WHITE MD DATE OF OPERATION: 06/08/2018 PROCEDURES: 1. PTCA stent left circumflex. 2. Left heart catheterization. 3. Selective coronary angiography. 4. Left ventriculogram. INDICATION: Angina and coronary artery disease. PROCEDURE IN DETAIL: After informed consent was obtained and after a detailed description of risks, benefits as well as alternative therapies, the patient elected to proceed with angiogram and angioplasty. The right radial area was prepped and draped in normal sterile fashion. Right radial artery was cannulated via modified Seldinger technique with placement of 6-Bulgarian sheath. All catheters exchanged through this sheath. FINDINGS: The left ventriculogram was performed in standard 30-degree HUFF view reveals good cardiac wall motion throughout all segments. Overall ejection fraction estimated 60%. SELECTIVE CORONARY ANGIOGRAPHY: 1. Left main is with no significant angiographic disease. 2. Left anterior descending has no significant disease. 3. Right coronary artery has no significant angiographic disease. 4. Left circumflex has acute closure of the previously placed stent. PTCA STENT OF THE LEFT CIRCUMFLEX: Stents used were 2.25 x 26 mm Integrity and 2.0 x 15 mm Roland. Result was 0% residual stenosis. No angiographic evidence of dissection or thrombus with oriental orthodox of ANIL 3 flow. IMPRESSION: Successful percutaneous transluminal coronary angioplasty stent of the left circumflex going from 100% initial stenosis to 0% residual stenosis. TRANSINT:[id number] Voice Confirmation ID: [id number] DOCUMENT ID: [id number] SOLA WHITE MD at 1949 CC: [id number] DICTATION DATE: 06/08/18 0901 ARSON AND BOMB INVESTIGATOR: 06/08/18 1036 DIS IN 06/08/18 [place] [id number] [place] [address]
--- NOTE | ~2018-06-07 | DS ---
PATIENT:BRIANNA BOWLING :62 MEDICAL RECORD: [id number] DISCHARGE SUMMARY ADMISSION DATE: 06/07/18 DISCHARGE DATE: 06/08/18 DIAGNOSES: 1. Non-Q-wave myocardial infarction. 2. Percutaneous transluminal coronary angioplasty stent to left circumflex this admission. HOSPITAL COURSE: Mr. Bowling presents with acute chest pain. He underwent PTCA stent last week of his circumflex. He was found to have a clot on it, most likely a Plavix nonresponder. Plavix was discontinued. He was discharged home on Effient. He has had statin intolerance in the past and statin was not instigated. His blood pressure upon discharge was low in the 100 systolic range, hence beta blockade was not undertaken. He has tried beta-blockers in the past as well and has not tolerated them. He was discharged home with the aspirin and Effient. He will follow up with his stemmer machine in [place]. TRANSINT:[id number] Voice Confirmation ID: [id number] DOCUMENT ID: [id number] SOLA WHITE MD at 1949 CC: [id number] DICTATION DATE: 06/08/18 1114 MODELING AGENT: 06/08/18 1126 DIS IN 06/08/18 [place] [address] [address] [place] [address]
[2018-06-07 15:33] LABS: BASOPHILS 0.1 % (0-2); EOSINOPHILS 0.1 % (0-7); HEMATOCRIT 44.5 % (42.0-54.0); IMMATURE GRANULOCYTES 0.2 % (0-5); LYMPHOCYTES 14.1 % (15-50); MCV 86.2 fL (80.0-100.0); MEAN PLATELET VOLUME 9.2 fL (7.4-10.4); MONOCYTES 7.4 % (2-11); NEUTROPHILS 78.1 % (40-80); PLATELET COUNT 273 10x3/uL (130-400); RBC 5.16 10x6/uL (4.20-6.10); RDW 12.5 % (11.5-14.5); WBC 9.5 10x3/uL (4.8-10.8)
[2018-06-07 15:50] LABS: APTT 24.2 SECONDS (22.8-39.4); INR 1.02 (0.85-1.17)
[2018-06-07 15:55] LABS: ALBUMIN 3.9 g/dL (3.4-5.0); ALKALINE PHOSPHATASE 66 U/L (46-116); ALT (SGPT) 51 U/L (10-68); BILIRUBIN - TOTAL 0.73 mg/dL (0.2-1.3); CALC OSMOLALITY 277 mosm/kg (275-300); CALCIUM 10.4 mg/dL (8.5-10.1); CARBON DIOXIDE 24.4 mmol/L (21.0-32.0); CHLORIDE - SERUM 95 mmol/L (98-107); CREATININE - SERUM 0.8 mg/dL (0.6-1.3); GLUCOSE 319 mg/dL (74-106); POTASSIUM - SERUM 4.1 mmol/L (3.5-5.1); PROTEIN - SERUM 8.7 g/dL (6.4-8.2); SODIUM 133 mmol/L (136-145); UREA NITROGEN 12 mg/dL (7-18); eGFR NON AFRICAN AMERICAN > 90 mL/min (90-120)
[2018-06-07 16:38] LABS: CKMB 22.5 U/L (0.0-3.6); CREATINE KINASE 340 UL (21-232)
[2018-06-07 16:41] LABS: TROPONIN-I 4.636 ng/mL (0.000-0.060)
[2018-06-07 18:17] LABS: CKMB 20.2 U/L (0.0-3.6); CREATINE KINASE 318 UL (21-232)
[2018-06-07] MEDS ORDERED: PLAVIX75 MG PO (20:27)
[2018-06-07 23:29] LABS: CKMB 11.2 U/L (0.0-3.6); CREATINE KINASE 227 UL (21-232)
[2018-06-07 23:30] LABS: TROPONIN-I 2.773 ng/mL (0.000-0.060)
[2018-06-08 03:56] VITALS: Ht 180.3 cm; Wt 117.4 kg
[2018-06-08 06:10] LABS: CKMB 4.6 U/L (0.0-3.6); CREATINE KINASE 126 UL (21-232)
[2018-06-08 06:11] LABS: TROPONIN-I 1.798 ng/mL (0.000-0.060)
[2018-06-08 06:23] VITALS: BP 125/77
[2018-06-08 07:54] VITALS: BP 153/89
[2018-06-08] MEDS ORDERED: EFFIENT10 MG PO (09:46)
[2018-06-08] MEDS ORDERED: BAYER CHEWABLE81 MG PO (09:47)
== END 2018-06-08 13:10 | disposition home or self-care (01) ==
LOC: OBSVTIME → D.ER 14:35 → D.EDHOLD 17:10 → D.M2 17:10 → OBSVTIME 17:10 → D.CLR 17:10 → D.ER 17:10 → D.EDHOLD 19:20 → D.M2 19:20 → D.ER 19:55 → D.M2 06-08 09:15 → D.CLR 06-08 09:15 → EDSTATUS 06-08 12:00 → D.CLR 06-08 13:10 → D.ER 06-08 13:10 → D.CLR 06-08 13:10
PROVIDERS: Family Medicine
DX: I97.190 Other postprocedural cardiac functional disturbances following cardiac surgery (principal); I21.A9 Other myocardial infarction type; T82.867A Thrombosis due to cardiac prosthetic devices, implants and grafts, initial encounter; Y84.0 Cardiac catheterization as the cause of abnormal reaction of the patient, or of later complication, without mention of misadventure at the time of the procedure; I25.110 Atherosclerotic heart disease of native coronary artery with unstable angina pectoris; I10 Essential (primary) hypertension; E78.5 Hyperlipidemia, unspecified